=== PATIENT | male | born 1970 | race Caucasian/White ===

== ENCOUNTER 2016-05-10 19:58 | Emergency (ER) | payer BC ==
[2016-05-10 21:45] VITALS: BP 129/75
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
--- NOTE | 2016-05-10 22:14 | RAD ---
HISTORY: The right shoulder trauma, pain COMPARISONS: None VIEWS: 3, Frontal internal rotation, external rotation, and outlet views of the right shoulder FINDINGS: BONE DENSITY: Normal. BONES: There is a comminuted and displaced, overriding fracture of the junction of the lateral third of the right clavicle. JOINTS: There is no arthropathy. ALIGNMENT: There is no dislocation. SOFT TISSUES: Unremarkable. OTHER FINDINGS: None. IMPRESSION: COMMINUTED, OVERRIDING FRACTURE OF THE RIGHT CLAVICLE.
--- NOTE | 2016-05-10 22:15 | RAD ---
HISTORY: Right axillary pain, trauma COMPARISONS: Right shoulder dated May 10, 2016 VIEWS: 4, Frontal view of the chest with frontal and oblique views of the right hemithorax. FINDINGS: Again noted is a comminuted fracture of the right clavicle. There is no displaced rib fracture or pneumothorax. There is calcific density that appears to be superficial or possibly external to the patient. This is considered incidental. IMPRESSION: NO DISPLACED RIB FRACTURE OR PNEUMOTHORAX. AGAIN NOTED IS A RIGHT CLAVICLE FRACTURE.
[2016-05-10] MEDS ORDERED: HYDROcodone/ACETAMIN 5-325 MG* 1 TAB PO ONE (22:36)
== END 2016-05-10 22:49 | disposition home or self-care (01) ==
LOC: UCEAST 19:58
DX: S42.001A Fracture of unspecified part of right clavicle, initial encounter for closed fracture (principal); S20.211A Contusion of right front wall of thorax, initial encounter; V86.92XA Unspecified occupant of snowmobile injured in nontraffic accident, initial encounter; Y93.9 Activity, unspecified; Y92.9 Unspecified place or not applicable; Z88.0 Allergy status to penicillin
CPT/HCPCS: 99203; G0463

== ENCOUNTER 2016-05-16 08:39 | Day surgery (SDC) | payer BC ==
[~2016-05-16 08:39] MED LIST: Buffered Lidocaine 1% SYR 3ML* 3 ML/SYR SYRINGE INTRADERM ONE; Dexamethasone IV* 4 MG/ML 1 ML (4 MG) IV SLOW PU ONE; DiMENhydriNATE IV* 50 MG/ML VIAL IV PUSH PRN; Famotidine IV* 10 MG/ML 2 ML (20 mg) IV ONE; HYDROmorphone INJ* 1 MG/ML CARPUJECT SYRINGE IV PRN; Ondansetron INJ* 2 MG/ML VIAL IV PRN; PROCHLORPERAZINE INJ 5 MG/ML 2 ML VIAL IV PRN; Scopolamine 1.5 mg* PATCH TRANSDERM PRN
[2016-05-16] MEDS ORDERED: Clindamycin 900 MG IVPREMIX(* 900 MG/50 ML SDV IV ONE (09:14)
[2016-05-16] MEDS ORDERED: Dexamethasone IV* 4 MG/ML 1 ML (4 MG) ONE (09:14)
[2016-05-16] MEDS ORDERED: Famotidine IV* 10 MG/ML 2 ML (20 mg) ONE (09:14)
[2016-05-16] MEDS ORDERED: fentaNYL* 50 MCG/ML 2 ML VIAL (100 MCG VIAL) ONE ×4 (09:42→15:14)
[2016-05-16] MEDS ORDERED: Midazolam* 1 MG/ML 2 ML VIAL (2 MG) ONE (09:44)
[2016-05-16] MEDS ORDERED: Ketorolac INJ* 30 MG/ML 1 ML VIAL ONE (09:47)
[2016-05-16] MEDS ORDERED: Lidocaine 2% PF * 5 ML VIAL ONE (09:47)
[2016-05-16] MEDS ORDERED: Ondansetron INJ* 2 MG/ML VIAL ONE (09:47)
[2016-05-16] MEDS ORDERED: Propofol* 10 MG/ML 20 ML BTL IV PUSH ONE (09:47)
[2016-05-16] MEDS ORDERED: HYDROmorphone INJ* 1 MG/ML CARPUJECT SYRINGE ONE ×4 (10:12→13:27)
[2016-05-16] MEDS ORDERED: Bupivacaine 0.5% W/EPI SDV* 30 ML VIAL ONE (13:48)
[2016-05-16] MEDS ORDERED: Bupivacaine 0.25% EPI 200,000* 30 ML SDV ONE (13:48)
--- NOTE | 2016-05-16 14:37 | RAD ---
INDICATION: Right clavicle ORIF, trauma fracture of the right clavicle COMPARISONS: May 14, 2016 TECHNIQUE: Fluoroscopy was provided for a surgical procedure. Total fluoroscopy time is: 26.6 FINDINGS: Spot images demonstrate internal fixation of the right clavicle IMPRESSION: FLUOROSCOPY WAS PROVIDED FOR A SURGICAL PROCEDURE CPT II Codes: 6045F
[2016-05-16] MEDS: fentaNYL* 50 MCG/ML 2 ML VIAL (100 MCG VIAL) IV PRN ×3 (15:03→15:16)
[2016-05-16] MEDS ORDERED: oxyCODONE/Acetamin 5/325 MG* TAB ONE ×2 (15:14→16:17)
--- NOTE | 2016-05-16 15:34 | RAD ---
INDICATION: ORIF traumatic fracture of right clavicle COMPARISON: May 16, 2016 TECHNIQUE: AP views were obtained. FINDINGS: There is ORIF of the mid shaft clavicular fracture. The fracture fragments are in anatomic position. There is no evidence of hardware failure. IMPRESSION: ORIF RIGHT CLAVICULAR FRACTURE
[2016-05-16 16:18] VITALS: BP 115/65
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
[2016-05-19] MEDS ORDERED: Scopolamine PATCH Remove* 1 NOTE MISC PATCH OFF ONE (07:14)
== END 2016-05-16 16:54 | disposition home or self-care (01) ==
LOC: OR 08:39
PROVIDERS: ATTEND Orthopaedic Surgery
DX: S42.031A Displaced fracture of lateral end of right clavicle, initial encounter for closed fracture (principal); S43.81XA Sprain of other specified parts of right shoulder girdle, initial encounter; V86.52XA Driver of snowmobile injured in nontraffic accident, initial encounter; Y92.89 Other specified places as the place of occurrence of the external cause
CPT/HCPCS: A9270-GY; C1713; C1776; C9359; J1100; J1170; J1885; J2250; J2405; J2704; J3010

== ENCOUNTER 2017-11-18 17:01 | Observation (INO) | payer BC ==
--- NOTE | 2017-11-18 19:26 | ED ---
Lower Extremity - HPI Summary HPI Summary: Pt is 47 y/o M who presents to ED c/o right foot pain. He has been dealing with feet issues for years, but in August underneath his right foot 5th metatarsal started bothering him enough to warrant a visit to the defective cigarette slitter. The side of right foot was rubbed raw, which led to an infection and he developed a fever. Last week he was on vacation and got another fever 3 days ago and his right foot was swollen. He went to see his defective cigarette slitter again 2 days ago who ordered him to get an X-ray and blood test. Since 2 days ago the swollen area and redness that was present on his right foot spread to his calf as well and led him to come to the ED. Yesterday his foot felt tender and painful, but now the pain is gone. Rated his pain intensity 1/10 at triage. He is on Clindamycin and took some earlier this morning. 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 PMHx denies diabetes, heart disease, or hypertension. - History of Current Complaint Chief Complaint: EDExtremityLower Stated Complaint: POSSIBLE INFECTION ON RT FT Time Seen by Provider: 11/18/17 19:05 Hx Obtained From: Patient Mechanism Of Injury: Unknown - possible infection Onset/Duration: Days Severity Currently: None Pain Intensity: 0 Pain Scale Used: 0-10 Numeric Associated Signs And Symptoms: Positive: Swelling, Redness, Fever Aggravating Factor(s): Nothing Alleviating Factor(s): Nothing - Allergies/Home Medications Allergies/Adverse Reactions: Allergies Allergy/AdvReac Type Severity Reaction Status Date / Time amoxicillin Allergy Intermediate Hives Verified 11/18/17 18:33 Home Medications: Home Medications Levocetirizine Dihydrochloride [Xyzal] 5 mg PO DAILY PRN 11/18/17 [History Confirmed 11/18/17] PMH/Surg Hx/FS Hx/Imm Hx Endocrine/Hematology History: Denies: Hx Diabetes Cardiovascular History: Denies: Hx Coronary Artery Disease, Hx Hypertension Sensory History: Denies: Hx Contacts or Glasses - had lasix surgery, Hx Hearing Aid Opthamlomology History: Denies: Hx Contacts or Glasses - had lasix surgery - Surgical History Surgery Procedure, Year, and Place: Hernia. RIGHT ankle - epidural. lasix eye surgery. vasectomy Hx Anesthesia Reactions: No Infectious Disease History: No Infectious Disease History: Denies: Traveled Outside the [place] in Last 30 Days - Family History Known Family History: Negative: Cardiac Disease - Social History Alcohol Use: Occasionally Substance Use Type: Reports: None Smoking Status (MU): Never Smoked Tobacco Review of Systems Positive: Fever - resolved Positive: Edema - right foot, Other Positive: Other - erythema right foot All Other Systems Reviewed And Are Negative: Yes Physical Exam - Summary Physical Exam Summary: Appearance: Well-appearing, Well-nourished, lying in bed comfortably Skin: Warm, dry, no obvious rash Eyes: sclera anicteric, no conjunctival pallor ENT: mucous membranes moist, pharynx appears normal Neck: Supple, nontender Respiratory: Clear to auscultation, no signs of respiratory distress Cardiovascular: Normal S1, S2. No murmurs. Normal distal pulses in tibial and radial bilaterally. Abdomen: Soft, nontender, normal active bowel sounds present Musculoskeletal: Cellulitic changes in distal leg, no cellulitis visible across into ankle or dorsum of foot, no sign of ankle effusion, strength/ROM Intact Neurological: A&Ox3, awake and alert, mentation is normal, speech is fluent and appropriate Psychiatric: affect is normal, does not appear anxious or depressed Triage Information Reviewed: Yes Vital Signs On Initial Exam: Initial Vitals Temp Pulse Resp BP Pulse Ox 98.9 F 78 18 142/75 98 11/18/17 17:06 11/18/17 17:06 11/18/17 17:06 11/18/17 17:06 11/18/17 17:06 Vital Signs Reviewed: Yes Diagnostics - Vital Signs Vital Signs Temp Pulse Resp BP Pulse Ox 11/18/17 17:06 98.9 F 78 18 142/75 98 - Laboratory Result Diagrams: 11/19/17 06:27 11/19/17 06:27 Lab Statement: Any lab studies that have been ordered have been reviewed, and results considered in the medical decision making process. Lower Extremity Course/Dx - Diagnoses Differential Diagnosis/HQI/PQRI: Positive: Other - Septic ankle Provider Diagnoses: Cellulitis Discharge - Sign-Out/Discharge Documenting (check all that apply): Patient Departure - Discharge Plan Condition: Good Disposition: ADMITTED TO [facility] - Billing Disposition and Condition Condition: GOOD Disposition: Admitted to [facility] - Attestation Statements Document Initiated by Scribe: Yes Documenting Scribe: Tariq Salvador Provider For Whom Jake is Documenting (Include Credential): Keith Ibarra MD Scribe Attestation: Tariq Michele, gisselled for Keith Ibarra MD on 11/19/17 at 1956. Scribe Documentation Reviewed: Yes Provider Attestation: The documentation as recorded by the [email or web address] accurately reflects the service I personally performed and the decisions made by me, Keith Ibarra MD
[2017-11-18 19:48] LABS: ABS Basophils 0 10^3/ul (0-0.2); ABS Eosinophils 0.2 10^3/ul (0-0.6); ABS Lymphocytes 1.8 10^3/ul (1.0-4.8); ABS Monocytes 0.6 10^3/ul (0-0.8); ABS Neutrophils 4.6 10^3/ul (1.5-7.7); ABS Nucleated RBC 0 10^3/ul; Eosinophil % 3.1 % (0-6); Hematocrit 39 % (42-52); Hemoglobin 13.3 g/dl (14.0-18.0); Lymphocyte % 25.2 % (25-47); Mean Corpuscular HGB Conc 34 g/dl (31-36); Mean Corpuscular Hemoglobin 30 pg (27-31); Mean Corpuscular Volume 88 fL (80-94); Mean Platelet Volume 7.2 um3 (7.4-10.4); Nucleated Red Blood Cells % 0; Platelet Count 328 10^3/ul (150-450); Red Blood Count 4.46 10^6/ul (4.00-5.40); Red Cell Distribution Width 13 % (10.5-15); White Blood Count 7.3 10^3/ul (3.5-10.8)
[2017-11-18] MEDS ORDERED: Ondansetron INJ* 2 MG/ML VIAL IV PRN (22:13)
[2017-11-18] MEDS ORDERED: Acetaminophen TAB* 325 MG PO PRN (22:13)
[2017-11-18] MEDS ORDERED: cefTRIAXone(*) 1 GM in NS 0.9% 50 ML* 50 ML IVPB SCH (22:30)
--- NOTE | 2017-11-19 00:57 | HP ---
CC: Dr. Edge; Dottie Viveros DPM, siding stapler. * HISTORY AND PHYSICAL: DATE OF ADMISSION: 11/18/17 PRIMARY CARE PROVIDER: None. ATTENDING PHYSICIAN: Cholo Hodge MD * (report being dictated by Jong Adams NP). CONSULTING INFECTIOUS DISEASE SPECIALIST: Dr. Edge. CHIEF COMPLAINT: Right lower extremity redness. HISTORY OF PRESENT ILLNESS: Mr. Martinez is a 47-year-old male patient who was previously healthy. He has a history of a right ankle ORIF, right hernia repair , vasectomy and right shoulder surgery. He is coming into the ED today, he recently started seeing a siding stapler back in August of this year and he had an insert made for him for his right foot. He starting wearing the insert and unfortunately he developed a blister and ulceration area to the plantar surface of his foot near the great toe. He had been following with the siding stapler. He stopped using insert but he developed a secondary infection. He was cultured and treated effectively the first time with antibiotics back in August. He was treated, he believes, in the form of clindamycin. He was treated, he said he had been doing well, he had not had no more recurrence of redness or swelling or pain. The ulcerated area had calloused over. He said he had been keeping an eye on it for any open areas. He, about 2 weeks, was in the [facility]. He has been swimming and he thinks cut the callous open. He noticed on that he started having chills, sweats. He was having a fever he believes. He went back to see his siding stapler who was concerned that it looked like there was another infection near that calloused area in the plantar aspect of his foot. She started him on clindamycin; however, they took another culture , however, despite the clindamycin the redness increased up into the leg. He saw her today. The cultures did grow back strep and staph. The patient was instructed to come to the ER which he did. He denies any chest pain and denies any shortness of breath. Denies having any calf pain or tenderness. He does admit to having leg swelling. He denies having any abdominal pain or any nausea , vomiting. He states that he is feeling well. He is not having any fevers or chills currently, but because of the worsening redness and the fact it was spreading up his leg, there was concern for underlying infection and possibly it being near his hardware and there was slightest concern for infection of the hardware possibly and we were asked to evaluate for admission. PAST MEDICAL HISTORY: Significant for none. PAST SURGICAL HISTORY: 1. Right hernia repair. 2. Right ankle ORIF. 3. Vasectomy. 4. Right shoulder surgery. HOME MEDICATIONS: Include, 1. Levocetirizine 5 mg daily as needed. 2. Multivitamin 1 tablet daily. 3. He was recently placed on clindamycin 300 mg t.i.d. ALLERGIES TO MEDICATIONS: Include AMOXICILLIN. FAMILY HISTORY: He states both his parents are healthy. SOCIAL HISTORY: He does not smoke, he does not drink. 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 Surrogate decision maker is his . REVIEW OF SYSTEMS: There is no documented fever here. He denied having any significant weight changes. No double vision. There is no ear discharge. He denies having any rhinorrhea. There was no sore throat. No thyroid enlargement. Denies having any chest pain. There was no orthopnea. There is no nocturnal dyspnea. He denies having any abdominal pain. There is no nausea , no vomiting, no dysuria, no frequency, no seizure, no loss of consciousness, no pruritus. No skin ulceration. Review of 14 systems completed, all others negative. PHYSICAL EXAMINATION GENERAL: Ms. Martinez is a 47-year-old male patient, appears to be well nourished, well developed. He is sitting in the ED stretcher. Does not appear to be in any acute distress. VITAL SIGNS: Blood pressure 118/88 with a pulse of 70, respirations 18, O2 saturation 99%, temperature 98.1. HEENT: Head: Atraumatic. Eyes: EOMs are intact. Sclerae are anicteric and not pale. NECK: Supple. Throat: Oral mucosa appears to be moist. No oropharyngeal erythema. LUNGS: Clear to auscultation bilaterally. No wheezes, rales, or rhonchi. HEART: Sounds S1, S2. He had a regular rate and rhythm. No murmurs, rubs or gallops. ABDOMEN: Soft, flat, nontender. Bowel sounds present. EXTREMITIES: Pulses were 2+ throughout. He is moving all 4 extremities with 5/ 5 strength. NEUROLOGIC: The patient is awake. He is alert. He is oriented x3. His tongue is midline. His maths tutor are equal. He has no gross focal deficits. SKIN: Grossly intact with the exception he has a calloused area that is on the plantar aspect of his right foot. He also has abrasions and healing wounds to the right ankle and there is some swelling there to the right ankle but he does have some erythema as well coming up to just above the ankle in the pretibial area. Otherwise skin is intact. LABORATORY DATA: WBC of 7.3, RBC of 4.46, hemoglobin 13.3, hematocrit 39, platelet count of 328, ESR was 45. Sodium was 140, potassium 4.3, chloride of 106, bicarb 28, BUN 24, creatinine 1.02, glucose of 93, calcium 9.5, total bili is 0.5, ALT 69, alk phos 197, CRP at 21.43, albumin 4.3. He had cultures done. He grew out strep group B, in addition to this grew out Staph aureus which was sensitive to cefazolin. He had a foot x-ray just done 2 days ago and impression at that point: Osteopenia, osteoarthritis, postsurgical change, no acute osseous injury. He had an ankle x-ray obtained today as well. No obvious injury that I could see. Old medical records reviewed. ASSESSMENT AND PLAN: Mr. Martinez is a 47-year-old male patient coming into the ED today with complaints of redness and swelling to his right ankle in the setting of also having a healing ulcer to his right foot. We were asked to evaluate for admission. He will be admitted under observation status for: 1. Lower extremity cellulitis: At this point, we will go ahead and put the patient on Rocephin. Blood cultures have been sent. He has wound cultures from the outpatient setting. I have consulted Dr. Edge. He will evaluate him tomorrow. For time being, we will go ahead and keep the patient on IV antibiotics. He does not appear to be septic. Because of the ankle swelling and redness, I will check an ultrasound as to rule out DVT, although I suspect this is less likely. The concern here is that a possible secondary infection of that hardware, but I will have Dr. Edge evaluate, if need be we can also get the orthopedic team involved. If we need to, we will have Dr. Edge evaluate and send off cultures, place him on Rocephin per the recommendation of Dr. Edge and we will continue to follow. 2. DVT prophylaxis: Low risk, we will place him on SCDs. 3. Code status: Full code. 4. Fluid, nutrition: He can have a regular diet. TIME SPENT: Time spent on the admission was 60 minutes, greater than half of that time was spent [id number] with the patient, obtaining history and physical, the other half of the time was spent going over the plan of care with the patient and implementing the plan of care. I did discuss plan of care with my attending, Dr. Hodge, who is in agreement. JONG ADAMS, SERJIO [id number]/[facility] #: [id number] MTDD
[2017-11-19 06:40] LABS: ABS Basophils 0.1 10^3/ul (0-0.2); ABS Eosinophils 0.4 10^3/ul (0-0.6); ABS Lymphocytes 1.9 10^3/ul (1.0-4.8); ABS Monocytes 0.6 10^3/ul (0-0.8); ABS Nucleated RBC 0 10^3/ul; Hematocrit 39 % (42-52); Hemoglobin 13.5 g/dl (14.0-18.0); Lymphocyte % 31.8 % (25-47); Mean Corpuscular HGB Conc 34 g/dl (31-36); Mean Corpuscular Hemoglobin 30 pg (27-31); Mean Corpuscular Volume 88 fL (80-94); Mean Platelet Volume 7.2 um3 (7.4-10.4); Nucleated Red Blood Cells % 0.1; Platelet Count 313 10^3/ul (150-450); Red Blood Count 4.47 10^6/ul (4.00-5.40); Red Cell Distribution Width 13 % (10.5-15); White Blood Count 5.9 10^3/ul (3.5-10.8)
[2017-11-19 06:44] LABS: INR 0.97 (0.77-1.02)
[2017-11-19 06:57] LABS: EGFR Non-African American 92.4 (>60)
--- NOTE | 2017-11-19 07:35 | RAD ---
INDICATION: Pain and swelling. TECHNIQUE: 3 views of the right foot were obtained. FINDINGS: There appear to be hammertoe deformities present. The bones are otherwise in normal alignment. There is diffuse soft tissue swelling. No periosteal reaction or erosive changes are seen. IMPRESSION: NO SPECIFIC EVIDENCE FOR OSTEOMYELITIS. IF THERE IS A HIGH CLINICAL INDEX OF SUSPICION FOR OSTEOMYELITIS CONSIDER AN MRI WITHOUT CONTRAST OR A THREE-PHASE BONE SCAN. R0
--- NOTE | 2017-11-19 07:37 | RAD ---
INDICATION: Pain and swelling TECHNIQUE: 3 views of the right ankle were obtained. FINDINGS: The patient is status post operative reduction internal fixation. Note is made of a surgical plate present along the lateral aspect of the distal fibula. There is also an interfragmentary screw. There is also a single screw surgical screw spanning the medial malleolus. There is ossification of the tibiofibular syndesmosis. There is diffuse soft tissue swelling. No periosteal reaction or erosive changes are seen. There is mild to moderate osteoarthritic change in the talocrural joint. IMPRESSION: SOFT TISSUE SWELLING, NO SPECIFIC EVIDENCE FOR OSTEOMYELITIS. IF THERE IS A HIGH CLINICAL INDEX OF SUSPICION FOR OSTEOMYELITIS CONSIDER AN MRI WITHOUT CONTRAST OR A THREE-PHASE BONE SCAN. R0
--- NOTE | 2017-11-19 09:24 | RAD ---
HISTORY: pain swelling, redness, COMPARISONS: None relevant TECHNIQUE: Multiple transverse and longitudinal ultrasound images were obtained of the right lower extremity from the level of the common femoral vein inferiorly through to the infrapopliteal veins using grayscale, color Doppler, and spectral Doppler imaging with and without compression and with augmentation. Comparison images were obtained of the contralateral common femoral vein. FINDINGS: VEINS: The venous system of the right lower extremity is compressible throughout its course, with normal flow on color Doppler imaging and normal response to augmentation on spectral Doppler imaging. SOFT TISSUES: Unremarkable. OTHER FINDINGS: None. IMPRESSION: NO RIGHT LOWER EXTREMITY DEEP VEIN THROMBOSIS
--- NOTE | 2017-11-19 12:32 | RAD ---
INDICATION: [Wound bottom of the foot evaluate for osteomyelitis. COMPARISON: Comparison is made with a prior x-ray study of the right foot November 18, 2017. TECHNIQUE: Axial, sagittal and coronal T1 and T2-weighted images of the right foot were obtained. The exam is limited due to motion artifact. FINDINGS: There is soft tissue swelling present throughout the foot which is most prominent along the plantar aspect of the foot. There is edema within the adjacent muscles. There appears to be a soft tissue wound adjacent to the plantar aspect of the distal fifth metatarsal. There is a fluid collection in the subcutaneous tissues in this region measuring 1.6 x 2.0 x 0.6 cm suspicious for an abscess. The bones are normal in signal intensity. No bone marrow edema is seen. There is no evidence for osteomyelitis. IMPRESSION: 1. FINDINGS SUGGESTIVE OF CELLULITIS AND MYOSITIS, NO EVIDENCE FOR OSTEOMYELITIS. 2. THERE IS A FOCAL FLUID COLLECTION WITHIN THE SUBCUTANEOUS TISSUES PLANTAR TO THE DISTAL FIFTH METATARSALS SUSPICIOUS FOR AN ABSCESS.
[2017-11-19 12:41] VITALS: BP 94/79
[2017-11-19] MEDS ORDERED: cefTRIAXone(*) 2 GM in NS 0.9% 100 ML* 100 ML IVPB ONE (14:52)
[2017-11-19 15:50] LABS: Urine Appearance Clear; Urine Blood Negative (Negative); Urine Color Yellow; Urine Ketones Negative (Negative); Urine Protein Negative (Negative); Urine Specific Gravity 1.017 (1.010-1.030); Urine Urobilinogen Negative (Negative)
--- NOTE | 2017-11-19 16:50 | CONS ---
CONSULTATION REPORT: DATE OF CONSULT: 11/19/17 REQUESTING PROVIDER: Jong Adams NP CONSULTING SERVICE: Infectious Disease. REASON FOR CONSULT: Foot infection. IMPRESSION: 1. 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 This is in the setting of history of ankle fixation. He has a cellulitis of the lower leg , which is likely Streptococcus. There is some myositis on the MRI. There is no osteomyelitis. There was a 2 cm x 1.6 x 0.6 cm subcutaneous fluid collection suspicious for abscess, plantar, distal 5th metatarsal area. Externally, exam is pretty benign and he is improving significantly with a dose of IV antibiotic and some leg elevation. 2. No history of diabetes or neuropathy. 3. AMOXICILLIN allergy caused hives, tolerating cephalosporins well. 4. Status post right ankle open reduction and internal fixation. RECOMMENDATIONS: Another dose of ceftriaxone 2 g here this afternoon. I think it would be reasonable for him to go home at that point and we will plan on 3 weeks of cephalexin 500 mg by mouth 3 times a day to treat the cellulitis and what looks like an underlying small abscess. Given that it is a small size and otherwise healthy appearing foot, I think surgical intervention may be premature at this point. If he is not significantly improving, we can have him see Orthopedics as an outpatient. HISTORY OF PRESENT ILLNESS: This is a 47-year-old man who had developed an ulcer at the right 5th plantar metatarsal head area in July after an orthotic type device had worn into skin a little bit, was complicated by wound infection due to Staphylococcus and Klebsiella. That healed up over the course of the spring and early summer, but then about 2 weeks ago developed a crack over that same region and then on Saturday developed redness, pain, swelling and fever. The redness and swelling were over the right plantar 5th metatarsal. He saw Dr. Viveros, who had taken a culture, which grew group B Strep and Staphylococcus. He was started on clindamycin. The erythema around the wound resolved as did his fever and chills, but he then had some redness in the lower leg, which skipped the ankle and that progressed. Because of the progression of symptoms, he came to the hospital last night. He was started on ceftriaxone. He has kept his legs up the whole time he has been here and the swelling and redness in the lower leg are improved. They are not gone totally. He had MRI with results as noted above. He has had no pain with weightbearing. No swelling in the ankle. He feels a little bit stiff this afternoon, but has been walking around on it without difficulty. PAST MEDICAL HISTORY: 1. Right ankle status post open reduction and internal fixation. 3. Status post hernia repair. 4. Status post vasectomy. ALLERGIES: AMOXICILLIN caused hives. MEDICATIONS: 1. Tylenol. 2. Ceftriaxone. SOCIAL HISTORY: He lives with his and children. 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 He has no sick contacts. FAMILY HISTORY: No recurrent infections. REVIEW OF SYSTEMS: All negative except as noted above to a 14-point review of systems. PHYSICAL EXAM: Vital Signs: Temperature of 37, heart rate 77, respiratory rate 18, blood pressure 100/80, oxygen saturation 100% on room air. In general , he is awake, not in distress. Neurologic: He is oriented x3. Follows all commands. HEENT: There is no conjunctival hemorrhage. Oropharynx without lesions. Neck is supple without mass. Heart is regular rate and rhythm without murmurs, rubs, or gallops. Lungs are clear to auscultation bilaterally. Abdomen: Soft, nontender, nondistended. There are bowel sounds present. Skin: There is no rash or splinter hemorrhage. Musculoskeletal: There is no spine tenderness to palpation. No joint synovitis. Right foot and ankle: There is diffuse mild edema without tenderness or crepitus or fluctuance. There is no right ankle joint effusion or tenderness. There is decreased range of motion, which is his baseline. Plantar 5th metatarsal head area: There is callus without crepitus or fluctuance. There is no erythema there. Right lower leg: There are blotchy patches of erythema. LABORATORY DATA: White blood cell count 6, hemoglobin 13, platelets 313. Creatinine is 0.9. CRP 21. Please see impressions and recommendations as outlined above. Thanks for asking me to see Mr. Martinez in consultation. [id number]/[facility] #: [id number] LACEY
--- NOTE | 2017-11-20 02:00 | DS ---
CC: Dr. Alpesh Edge; Erica Soni DO, from the [facility] * DISCHARGE SUMMARY: DATE OF ADMISSION: 11/18/17 DATE OF DISCHARGE: 11/19/17 MY ATTENDING FOR TODAY: Dr. Montez.* (DICTATED BY EDISON BURNS, SERJIO) HOSPITAL COURSE: This is a very pleasant 47-year-old male patient who presented to the emergency department at the recommendation of his building maintenance engineer for failing outpatient treatment for cellulitis and a nonhealing wound on the plantar aspect of the right foot. The patient stated he noticed that the wound opened when he was in vacation a few weeks back. He did have some outpatient cultures that grew strep and staph; however, the patient started having a fever at home and then he felt chills and then saw some worsening redness over the medial aspect of the rodriguez as well as the dorsal aspect of the right foot. The patient was admitted for cellulitis. He received IV Rocephin and was seen by Dr. Alpesh Edge of Infectious Disease. Even though he failed outpatient treatment, Dr. Edge felt that it would be okay to discharge the patient on 21 days of cephalexin. Of significant note, the MRI of the ankle and foot did show a fluid collection in the joint. He does have a traumatic injury with hardware on the right ankle. So, it is unclear whether this really represents an osteo or an abscess; however, Dr. Edge feels that continued antibiotics to see if we can get clearing and then re- imaging to look for resolution of the fluid collection. If the fluid collection is still present or if the patient does not continue to improve, Dr. Edge will arrange for referral to orthopedist for possibly opening up the ankle removing surgery and seeing if the patient needs a washout of the joint. DISCHARGE DIAGNOSES: 1. Cellulitis. 2. Nonhealing right foot wound. 3. Status post open reduction internal fixation of right ankle with hardware. MEDICATIONS FOR DISCHARGE: Include: 1. Xyzal 5 mg p.o. daily p.r.n. 2. Multivitamins 1 tablet p.o. daily. 3. Cephalexin 500 mg 3 times a day x21 days. 4. Tylenol as needed. REVIEW OF SYSTEMS: A 10-point review of systems is negative, except as noted in the HPI. PHYSICAL EXAM ON DAY OF DISCHARGE: The patient is alert, in no acute distress. Vital signs are temperature 98.4, heart rate 77, respiratory rate 18, O2 saturation 100% on room air with a blood pressure of 113/67. HEENT: The patient is atraumatic, normocephalic. PERRLA with nonicteric sclerae. Oral mucosa is moist. Tongue is midline. Neck is supple, nontender. No JVD noted. No carotid bruit auscultated. Cardiovascular: S1, S2 present. No murmurs, gallops, or rubs noted. Rate and rhythm are regular. Lungs are clear bilaterally to auscultation with wheezing, rhonchi, or rales. Abdomen is soft, nontender, and nondistended. Positive bowel sounds in all 4 quadrants. is deferred. Musculoskeletal: There was no clubbing and no cyanosis. He does have some edema to the dorsal aspect of the right foot, some erythema to medial aspect of the lower rodriguez, and an open callus wound with no exudate or drainage noticed to the plantar aspect of the right foot in the fifth metatarsal. Neurologic: He is grossly intact and no focal deficits. Psychiatric: He is cooperative and appropriate. LABORATORY DATA/DIAGNOSTIC STUDIES: WBC is 5.9, RBC is 4.47, hemoglobin 13.5, hematocrit 39, platelets 313. Sodium 141, potassium 4.6, chloride 106, CO2 of 29, BUN 24, creatinine 0.89, GFR is 92.4, glucose 96, calcium 9.0. CRP is 21.43. Urinalysis is negative for any acute process. MRI of the right lower extremity shows findings suggestive of cellulitis and myositis. No evidence for osteomyelitis. There was a focal fluid collection within the subcutaneous tissues of plantar to the distal fifth metatarsal suspicious for an abscess. Ultrasound imaging of the right lower extremity shows no acute DVT. DISPOSITION: The patient will be discharged to home for 21-day course of antibiotics with followup with Dr. Edge. We will continually reassess the foot and re-image for resolution of fluid collection. Dr. Edge will also refer to Orthopedics as needed. The patient has followup also with the [facility] here [facility] for primary care followup. ACTIVITY: The patient was instructed to not walk barefoot, also to not go swimming while the wound is healing. Elevate extremity as needed. DIET: Regular as tolerated. The patient was discharged in stable condition. All question were answered. The patient stated his understanding of his discharge instructions, his followups, and medications at the time of discharge. Plan of care has taken in excess of 30 minutes interfacing with the patient and planning medications for discharge. EDISON BURNS, SERJIO [id number]/[facility] #: [id number] [facility] PARTNERSMichel
--- NOTE | 2017-11-20 10:12 | RAD ---
Indication: Osteomyelitis. Image Sequences: Axial T1, coronal T1, axial STIR, coronal STIR, and sagittal T1 were obtained. Metal reduction artifact images were also obtained. The calcaneus, talus and distal tibia demonstrates no evidence of bone marrow edema or bone marrow replacement. No definite drainable fluid collections are noted. There is extensive subcutaneous edema noted throughout the lower extremity. There may be some muscular edema in the anterior tibialis muscle. No abnormal fluid is noted. IMPRESSION: No evidence of abscess collection is noted. No bone marrow edema is noted. Extensive subcutaneous edema is noted. There is some muscular edema predominantly in the anterior tibialis muscle noted.
== END 2017-11-19 19:20 | disposition home or self-care (01) ==
LOC: ED 17:01 → MED 22:09
PROVIDERS: ADMIT Hospitalist; ATTEND Student in an Organized Health Care Education/Training Program
DX: L03.90 Cellulitis, unspecified (principal); L97.911 Non-pressure chronic ulcer of unspecified part of right lower leg limited to breakdown of skin; Z87.81 Personal history of (healed) traumatic fracture; Z98.52 Vasectomy status; R50.9 Fever, unspecified; R60.9 Edema, unspecified
CPT/HCPCS: 36415; 80048; 80053; 81003; 85025; 85610; 85652; 86140; 87040; 96365; 96375; 99283; A9270-GY; G0378; J0696

== ENCOUNTER 2019-04-21 10:16 | Day surgery (SDC) | payer BC ==
--- NOTE | 2019-04-20 16:22 | HP ---
PREOPERATIVE HISTORY AND PHYSICAL: DATE OF ADMISSION/SURGERY: 04/21/19 DATE OF OFFICE VISIT/ENCOUNTER: 04/20/19 ATTENDING SURGEON: Brittanie Childress MD.* (DICTATED BY JULIO VALERA) PROCEDURE: Open reduction and internal fixation, left wrist. HISTORY OF PRESENT ILLNESS: This is a 48-year-old male who sustained injury to his left wrist on 04/12/19. He was on vacation in [place] when he stepped on some ice and slipped landing on an outstretched left hand. He was seen at [facility] upon his return to [place] on 04/17/19. X-rays showed a left displaced distal radius fracture. He was placed in a sugar tong splint, referred to Dr. Childress for further evaluation and treatment consideration after review of the x-rays and evaluation of the patient. Dr. Childress has recommended surgical intervention for best outcome and the patient has consented to proceed. PAST MEDICAL HISTORY: Unremarkable. PAST SURGICAL HISTORY: 1. Hernia repair. 2. Diskectomy. 3. Open reduction and internal fixation, right ankle. 4. Open reduction and internal fixation, right clavicle. 5. Right foot incision and drainage. The patient denies any anesthesia problems with these procedures. CURRENT MEDICATIONS: Multivitamin daily. ALLERGIES: AMOXICILLIN causes hives. FAMILY MEDICAL HISTORY: Noncontributory. 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 He denies tobacco use and recreational drug use. He drinks alcohol on occasion. REVIEW OF SYSTEMS: Negative for general, cephalic, cardiovascular, respiratory , GI, , other musculoskeletal, integumentary, endocrine, neurologic, hematologic symptoms. Infectious Disease: Negative for MRSA, hepatitis C, HIV. PHYSICAL EXAMINATION GENERAL: A well-developed, well-nourished 48-year-old male in no acute distress. VITAL SIGNS: Height 6 feet tall, weight 185 pounds. Pulse rate 72, blood pressure 130/74. HEENT: Normocephalic, atraumatic. Pupils are equal, round, and reactive to light and accommodation. Extraocular movements are intact. NECK: Supple. No palpable lymph nodes. Throat is clear. PULMONARY: Lungs are clear to auscultation bilaterally. No wheezes, rales, or rhonchi. CARDIOVASCULAR: Regular rate and rhythm. S1, S2. No murmurs, rubs or gallops. No edema. ABDOMEN: Positive bowel sounds. Soft, nontender. NEUROLOGICAL: Alert and oriented x3. Cranial nerves II through XII are intact. Sensation is intact to light touch. MUSCULOSKELETAL: On exam of his left wrist, skin is intact without abrasions or open wounds. There is moderate edema over the dorsal aspect of the wrist and into the hand with some ecchymosis in the palm and fingers. He has tenderness to palpation at the distal radius. He has good motion in his fingers and neurovascular function is intact. DIAGNOSTIC STUDIES: AP lateral and oblique of the left wrist show distal radius fracture with angulation. IMPRESSION: Left displaced distal radius fracture. PLAN: The patient is scheduled to undergo an open reduction and internal fixation, left wrist, with Dr. Childress on 04/21/19. He will return to the office 10 days postop for followup and suture removal. A prescription for [place] was e-scribed to the patient's pharmacy for postoperative pain management. JULIO VALERA [id number]/[facility] #: [id number] LACYE
[~2019-04-21 10:16] MED LIST changes: -Buffered Lidocaine 1% SYR 3ML* 3 ML/SYR SYRINGE INTRADERM ONE; -Dexamethasone IV* 4 MG/ML 1 ML (4 MG) IV SLOW PU ONE; -DiMENhydriNATE IV* 50 MG/ML VIAL IV PUSH PRN; -Famotidine IV* 10 MG/ML 2 ML (20 mg) IV ONE; -HYDROmorphone INJ* 1 MG/ML CARPUJECT SYRINGE IV PRN; +Lactated Ringers 1000 ML Bag* 1,000 ML IV SCH; -Ondansetron INJ* 2 MG/ML VIAL IV PRN; -PROCHLORPERAZINE INJ 5 MG/ML 2 ML VIAL IV PRN; -Scopolamine 1.5 mg* PATCH TRANSDERM PRN
[2019-04-21] MEDS ORDERED: Clindamycin 900 MG/D5W BAG(*) 900 MG/50 ML BAG IVPB ONE (11:03)
[2019-04-21] MEDS ORDERED: fentaNYL* 50 MCG/ML 2 ML VIAL (100 MCG VIAL) ONE (12:02)
[2019-04-21] MEDS ORDERED: Midazolam* 1 MG/ML 2 ML VIAL (2 MG) ONE (12:03)
[2019-04-21] MEDS ORDERED: Bupivacaine 0.5% SDV PF* 30ML VIAL ONE (12:09)
[2019-04-21] MEDS ORDERED: Mepivacaine 2% MPF (20 MG/ML)* 20 ML MPF ONE (12:09)
[2019-04-21] MEDS ORDERED: Buffered Lidocaine 1% SYRIN* 1 ML/SYRINGE INTRADERM ONE (12:28)
[2019-04-21] MEDS ORDERED: oxyCODONE/Acetamin 5/325 MG* TAB PO PRN (13:12)
[2019-04-21] MEDS ORDERED: Naloxone* 0.4 MG/ML 1 ML VIAL IV PRN (13:12)
[2019-04-21] MEDS ORDERED: Dexamethasone IV* 4 MG/ML 1 ML (4 MG) ONE (13:14)
[2019-04-21] MEDS ORDERED: Ketorolac INJ* 30 MG/ML 1 ML VIAL ONE (13:14)
[2019-04-21] MEDS ORDERED: Ondansetron INJ* 2 MG/ML VIAL ONE (13:14)
[2019-04-21 14:19] VITALS: BP 120/71
--- NOTE | 2019-04-21 21:38 | OP ---
DATE OF OPERATION: 04/21/19 [facility] DATE OF : 74 SURGEON: Brittanie Childress MD GRAD[employer] 7 AND 8 TEACHER: JULIO Bronson ANESTHESIA: Block. PRE-OP DIAGNOSIS: Left distal radius fracture, which is displaced. POST-OP DIAGNOSIS: Left distal radius fracture, which is displaced. OPERATIVE PROCEDURE: Open reduction internal fixation of the left distal radius. INDICATIONS: Asael is a 48-year-old male who fell and injured his left wrist. Several days later, he had an x-ray and it showed a displaced fracture of the distal radius. He presents for open reduction internal fixation. ESTIMATED BLOOD LOSS: Zero. TOURNIQUET TIME: About 35 minutes. DESCRIPTION OF PROCEDURE: The patient was brought to the operating room, was given a block anesthetic and placed in the supine position on the operating table with a tourniquet around his left upper arm. The skin of his left upper extremity was prepped and draped in the usual sterile fashion. The upper extremity was exsanguinated and the tourniquet elevated to 250 mmHg. A longitudinal incision was made over the FCR tendon and we dissected sharply through the FCR tendon sheath, both superficial and deep. The FPL muscle and tendon were then retracted ulnarly. The pronator quadratus was incised and was subperiosteally dissected off the distal radius fracture fragments. There was some healing callus and this was debrided and then the fracture fragments were reduced and then secured with a Synthes distal radius variable angle plate. It was secured with 3 proximal cortical screws and 4 distal variable angle locking screws. The position of the hardware and fracture fragments was checked on the C-arm in the AP and lateral views and found to be satisfactory. The wound was copiously irrigated with saline. The pronator quadratus was repaired over the plate. The FCR tendon sheath was repaired with 2-0 Vicryl suture. The skin edges were reapproximated with 4-0 nylon suture and then the wound was dressed with Xeroform, 4x4, Webril, and a volar splint. The patient tolerated the procedure well and was brought to the recovery room in good condition. [id number] #: [id number] [facility]
== END 2019-04-21 14:31 | disposition home or self-care (01) ==
LOC: OREAST 10:16
PROVIDERS: ATTEND Orthopaedic Surgery
DX: S52.502A Unspecified fracture of the lower end of left radius, initial encounter for closed fracture (principal); W00.0XXA Fall on same level due to ice and snow, initial encounter; Y92.9 Unspecified place or not applicable
CPT/HCPCS: 76000; C1713; C1776; J0670; J1100; J1885; J2250; J2405; J3010; J3490